=== PATIENT | male | born 1995 | race African-American/Black ===

== ENCOUNTER 2017-06-26 19:10 | Emergency (ER) | payer MEDICAID ==
[2017-06-26 19:22] VITALS: BP 134/69
--- NOTE | 2017-06-26 20:12 | RADIOLOGY REPORT (SQ) ---
EXAM DESCRIPTION: FINGER RIGHT COMPLETED DATE/TIME: 06/26/2017 7:53 pm REASON FOR STUDY: smashed 2 days ago COMPARISON: None. NUMBER OF VIEWS: Three views. TECHNIQUE: AP, lateral, and oblique images acquired of the right second finger. LIMITATIONS: None. FINDINGS: MINERALIZATION: Normal. BONES: No acute fracture or dislocation. No worrisome bone lesions. SOFT TISSUES: No soft tissue swelling. No foreign body. OTHER: No other significant finding. IMPRESSION: NO RADIOGRAPHIC EVIDENCE OF ACUTE INJURY. COMMENT: SITE OF TRAUMA/COMPLAINT MARKED/STAMP COMPLETED: Yes TECHNICAL DOCUMENTATION: JOB ID: [id number] [employer]- All Rights Reserved Reading location - IP/workstation name: [email or web address]
[2017-06-26] MEDS ORDERED: DIPH/PERTUSS(ACELL)/TETANUS VAC/PF 0.5 ML SYR (>=10YO) IM ONE (20:18)
--- NOTE | 2017-06-26 20:21 | ER Document Report ---
HPI - HPI Patient complains to provider of: smashed in door 3 days ago Pain Level: 4 Context: 21-year-old male crushed his right index finger nail in the car door 3 days ago. Tetanus is not current Associated Symptoms: None Exacerbated by: Denies Relieved by: Denies Similar symptoms previously: No Recently seen / treated by doctor: No - ROS ROS below otherwise negative: Yes Systems Reviewed and Negative: Yes All other systems reviewed and negative - MUSCULOSKELETAL Musculoskeletal: REPORTS: Extremity pain Past Medical History - General Information source: Patient - Social History Smoking Status: Never Smoker Frequency of alcohol use: None Drug Abuse: None Lives with: Parents Family History: Hypertension Patient has suicidal ideation: No Patient has homicidal ideation: No Pulmonary Medical History: Reports: Hx Asthma Renal/ Medical History: Denies: Hx Peritoneal Dialysis Surgical Hx: Negative - Immunizations Immunizations up to date: Yes Hx Diphtheria, Pertussis, Tetanus Vaccination: Yes Vertical Provider Document - CONSTITUTIONAL Agree With Documented VS: Yes Exam Limitations: No Limitations - INFECTION CONTROL TRAVEL OUTSIDE OF THE [place] IN LAST 30 DAYS: No COUNTRY TRAVELED TO/FROM: [facility] - NECK Neck: Supple - MUSCULOSKELETAL/EXTREMETIES Musculoskeletal/Extremeties: MAEW, FROM, Tender - Nail is up and out of the nailbed, no collection of blood under the nail, no pus, no felon,n/v intact right index finger tip - NEURO Level of Consciousness: Awake, Alert Motor/Sensory: No Motor Deficit, No Sensory Deficit Course - Re-evaluation Re-evalutation: 06/26/17 20:20 xray neg per rad - Vital Signs Vital signs: Temp Pulse Resp BP Pulse Ox 98.9 F 68 18 134/69 H 97 06/26/17 19:20 06/26/17 19:20 06/26/17 19:20 06/26/17 19:20 06/26/17 19:20 Procedures - Immobilization Right Finger Time completed: 20:45 Pre-Proc Neuro Vasc Exam: Normal Immobilizer type: Finger splint (Static) Performed by: PCT Post-Proc Neuro Vasc Exam: Normal Alignment checked and good: Yes Discharge - Discharge Clinical Impression: right index crush injury right index Condition: Good Disposition: HOME, SELF-CARE Instructions: Acetaminophen, Crush Injury ([facility]), Ibuprofen (General) ([facility]) Additional Instructions: wash with soap and water daily bacitracin non stick dressing keep covered and clean return to er any signs of infection let the finger heal and nail will grow out, keep clipped down work note for 1 week Prescriptions: Ibuprofen [Motrin 800 mg Tablet] 800 mg PO Q8HP PRN #30 tablet PRN Reason: Forms: Return to Work
== END 2017-06-26 20:37 | disposition home or self-care (01) ==
LOC: ER 19:10
DX: S67.190A Crushing injury of right index finger, initial encounter (principal); W23.0XXA Caught, crushed, jammed, or pinched between moving objects, initial encounter; J45.909 Unspecified asthma, uncomplicated
CPT/HCPCS: 90471; 90715; 99283

== ENCOUNTER 2018-03-13 08:31 | Emergency (ER) | payer SELFPAY ==
[2018-03-13] MEDS ORDERED: POLYMYXIN B SULFATE/TMP OPH SOLN (10 ML/ER DISP) OD PRN (09:22)
--- NOTE | 2018-03-13 09:24 | ER Document Report ---
HPI - HPI Time Seen by Provider: 03/13/18 08:57 Pain Level: 0 Notes: Patient is an otherwise healthy 22-year-old male who presents to the emergency department with chief complaint of left eye redness and drainage. He reports that this started 2 mornings ago. He states when he wakes up in the morning his eyes crusted shut. He states throughout the day he has drainage from the eye. He denies any trauma or pain. Reports normal vision. - EENT EENT: REPORTS: Eye problems - NEURO Neurology: DENIES: Headache, Weakness, Vision blurred, Dizzinesss / Vertigo - CARDIOVASCULAR Cardiovascular: DENIES: Chest pain - RESPIRATORY Respiratory: DENIES: Trouble Breathing, Coughing - GASTROINTESTINAL Gastrointestinal: DENIES: Abdominal Pain, Black / Bloody Stools - URINARY Urinary: DENIES: Dysuria, Urgency, Frequency - MUSCULOSKELETAL Musculoskeletal: DENIES: Extremity pain Past Medical History - General Information source: Patient - Social History Smoking Status: Never Smoker Chew tobacco use (# tins/day): No Frequency of alcohol use: None Drug Abuse: None Family History: Hypertension Patient has suicidal ideation: No Patient has homicidal ideation: No Pulmonary Medical History: Reports: Hx Asthma Renal/ Medical History: Denies: Hx Peritoneal Dialysis - Immunizations Immunizations up to date: Yes Hx Diphtheria, Pertussis, Tetanus Vaccination: Yes Vertical Provider Document - CONSTITUTIONAL Notes: PHYSICAL EXAMINATION: GENERAL: Well-appearing, well-nourished and in no acute distress. HEAD: Atraumatic, normocephalic. EYES: Pupils equal round extraocular movements intact, conjunctiva are erythematous with clear drainage noted. ENT: Nares patent NECK: Normal range of motion LUNGS: No respiratory distress Musculoskeletal: Normal range of motion NEUROLOGICAL: Normal speech, normal gait. PSYCH: Normal mood, normal affect. SKIN: Warm, Dry, normal turgor, no rashes or lesions noted. - INFECTION CONTROL TRAVEL OUTSIDE OF THE [place] IN LAST 30 DAYS: No COUNTRY TRAVELED TO/FROM: [facility] Course - Re-evaluation Re-evalutation: Examination is consistent with conjunctivitis. No evidence of corneal abrasion. - Vital Signs Vital signs: Temp Pulse Resp BP Pulse Ox 98.3 F 52 L 14 122/54 L 100 03/13/18 08:36 03/13/18 08:36 03/13/18 08:36 03/13/18 08:36 03/13/18 08:36 Discharge - Discharge Clinical Impression: Conjunctivitis Qualifiers: Conjunctivitis type: unspecified Laterality: left Qualified Code(s): H10.9 - Unspecified conjunctivitis Condition: Stable Disposition: HOME, SELF-CARE Additional Instructions: Conjunctivitis You have an infection in your eye, commonly known as "pink eye." Conjunctivitis causes redness, mild discomfort, itching, and mattering on the eyelids. It is very contagious, so you must be careful to wash your hands after touching your face so you don't pass the infection on to others. Conjunctivitis is caused by both viruses and bacteria. It usually responds quickly to treatment with antibiotic drops. These should be placed in the eye as prescribed (usually every three to four hours while you're awake). If you wear contact lenses, don't put them in your eyes until the infection is cleared and you are no longer using the drops (unless your doctor advises you otherwise). Should you develop increasing eye pain, severe swelling, decreased vision, or fail to improve as expected, please return for re-examination. Eyedrop Use Eyedrops are most easily applied by pulling down on the cheek just below the lower eyelid. The lower lid will pop out to form a pouch into which you can drop the medicine. A small brief sting is not unusual, especially if the eye is reddened and irritated already. Use the drops exactly as recommended. You should see the doctor at once if there is a decrease in vision, swelling of the eye, or an increase in discomfort. Apply 1 drop of Polytrim eyedrops into your left eye every 3 hours for 7 days. Max dose is 6 times per day. Return to the emergency department if you develop worsening symptoms such as pain in your eye or visual changes. Patient are to perform good handwashing and washing your pillowcase and linens that you sleep on as conjunctivitis is very contagious. Forms: Return to Work
[2018-03-13 09:51] VITALS: BP 128/72
== END 2018-03-13 09:51 | disposition home or self-care (01) ==
LOC: ER 08:31
DX: H10.9 Unspecified conjunctivitis (principal); H57.9 Unspecified disorder of eye and adnexa
CPT/HCPCS: 99282; J3490